=== PATIENT | male | born 1970 | race Caucasian/White ===

== ENCOUNTER 2017-04-13 23:40 | Emergency (ER) | payer MEDICARE ==
[~2017-04-13] VITALS: Ht 182.9 cm; Wt 186.4 kg
[~2017-04-13 23:40] MED LIST: ARIP20TA8 PO; ATOR40TA28 PO; DULO60CA44 PO; ERYTOO OU; FURO-152 PO; LORA10TA7 PO; MELO-273 PO; METO-325 PO; OMEP10CA41 PO; SELE120S2 TD; TRI115O TP
[2017-04-14 03:26] VITALS: BP 153/103
[2017-04-14] MEDS ORDERED: DiphenhydrAMINE HCL 25 MG CAPSULE PO ONE (03:30)
[2017-04-14] MEDS ORDERED: AmLODIPine BESYLATE 5 MG TABLET PO ONE (03:45)
== END 2017-04-14 04:02 | disposition home or self-care (01) ==
LOC: EMS 23:42
DX: T14.8 Other injury of unspecified body region (principal); L30.9 Dermatitis, unspecified; I10 Essential (primary) hypertension; W57.XXXA Bitten or stung by nonvenomous insect and other nonvenomous arthropods, initial encounter; Y93.89 Activity, other specified; Y92.89 Other specified places as the place of occurrence of the external cause; Y99.8 Other external cause status
CPT/HCPCS: 99283

== ENCOUNTER 2017-04-14 07:08 | Emergency (ER) | payer MEDICARE ==
[~2017-04-14] VITALS: Ht 182.9 cm; Wt 181.8 kg
[2017-04-14 07:37] LABS: GLUCOSE,POINT OF CARE 103 MG/DL (70-110)
[2017-04-14 08:48] VITALS: BP 175/90
== END 2017-04-14 08:48 | disposition home or self-care (01) ==
LOC: EMS 07:09
DX: L30.9 Dermatitis, unspecified (principal); F25.9 Schizoaffective disorder, unspecified; F42.8 Other obsessive-compulsive disorder; F32.9 Major depressive disorder, single episode, unspecified; I10 Essential (primary) hypertension
CPT/HCPCS: 82962; 99284

== ENCOUNTER 2017-07-26 21:04 | Emergency (ER) | payer MEDICARE ==
[~2017-07-26] VITALS: Ht 182.9 cm; Wt 145.4 kg
[2017-07-26 23:20] LABS: BASOPHILS % (AUTO) 0.4 % (0.0-2.0); EOSINOPHILS % (AUTO) 3.2 % (1.0-6.0); HEMATOCRIT 36.7 % (41-53); HEMOGLOBIN 12.3 g/dL (13.5-17.5); LYMPHOCYTES # (AUTO) 2.1 K/uL (1.0-4.8); LYMPHOCYTES % (AUTO) 25.7 % (22.0-44.0); MEAN CORPUSCULAR HEMOGLOBIN 29.8 pg (26.0-34.0); MEAN CORPUSCULAR HGB CONC 33.6 G/dL (31.0-37.0); MEAN CORPUSCULAR VOLUME 89 fL (80-100); MONOCYTES # (AUTO) 0.5 K/uL (0.1-1.0); MONOCYTES % (AUTO) 6.6 % (2.0-9.0); NEUTROPHILS # (AUTO) 5.3 K/uL (1.8-7.7); NEUTROPHILS % (AUTO) 64.1 % (40.0-70.0); PLATELET COUNT (AUTO) 243 K/uL (150-450); RED BLOOD CELL COUNT(AUTO) 4.13 MIL/uL (4.50-5.90); WHITE BLOOD COUNT (AUTO) 8.3 K/uL (4.5-11.0)
[2017-07-26 23:33] LABS: ANION GAP 9 mmol/L (8-16); CALCIUM, TOTAL 8.5 mg/dL (8.8-10.5); CARBON DIOXIDE 27 mmol/L (22-29); CHLORIDE 105 mmol/L (98-107); CREATININE 1.37 mg/dL (0.60-1.30); GLOMERULAR FILTR. RATE CALC 55 mL/min (>60); POTASSIUM 3.4 mmol/L (3.5-5.1); SODIUM SERUM 141 mmol/L (136-145); UREA NITROGEN, BLOOD 13 mg/dL (7-18)
[2017-07-26 23:38] LABS: ALANINE AMINOTRANSFERASE 26 U/L (12-78); ASPARTATE AMINOTRANSFERASE 21 U/L (15-37); BILIRUBIN,TOTAL 0.4 mg/dL (0.1-1.0); TOTAL PROTEIN, SERUM 6.6 g/dL (6.4-8.2)
[2017-07-27 00:26] VITALS: BP 138/82
== END 2017-07-27 00:28 | disposition home or self-care (01) ==
LOC: EMS 21:06
DX: H53.8 Other visual disturbances (principal); I10 Essential (primary) hypertension
CPT/HCPCS: 36415; 80053; 85025; 99284; G0480

== ENCOUNTER 2018-01-31 20:59 | Emergency (ER) | payer MEDICARE, OTHER ==
[~2018-01-31] VITALS: Ht 182.9 cm; Wt 123.0 kg
[~2018-01-31 20:59] MED LIST changes: +ARIP20TA PO; -ARIP20TA8 PO; +MELO-107 PO; -MELO-273 PO; -METO-325 PO; +METO-391 PO
[2018-01-31] MEDS ORDERED: NYST15PO3 TP (21:49)
[2018-01-31] MEDS ORDERED: TRAZ-144 PO (21:49)
[2018-01-31] MEDS ORDERED: KETO120S2 TP (21:49)
[2018-01-31] MEDS ORDERED: FURO20 PO (21:49)
[2018-01-31] MEDS ORDERED: MODA100 PO (21:49)
[2018-01-31] MEDS ORDERED: CARB4OS OU (21:49)
[2018-01-31] MEDS ORDERED: PROPARACAINE/FLUORESCEIN SOD 0.5-0.25% 0.5 ML OPHTHALMIC SOLUTION OU ONE (22:30)
[2018-01-31 23:11] VITALS: BP 139/90
== END 2018-01-31 23:19 | disposition home or self-care (01) ==
LOC: EMS 21:00
DX: H10.13 Acute atopic conjunctivitis, bilateral (principal); H04.122 Dry eye syndrome of left lacrimal gland; H04.121 Dry eye syndrome of right lacrimal gland; I10 Essential (primary) hypertension
CPT/HCPCS: 99283